=== PATIENT | female | born 2000 | race Two or more races ===

== ENCOUNTER 2024-11-24 11:16 | Outpatient (CLI) | payer OTHER | END 2024-11-24 11:23 | disposition home or self-care (01) | LOC: PRENATAL 11:16 | PROVIDERS: ATTEND Obstetrics & Gynecology Maternal & Fetal Medicine | DX: O36.80X0 Pregnancy with inconclusive fetal viability, not applicable or unspecified (principal); O26.859 Spotting complicating pregnancy, unspecified trimester; O30.90 Multiple gestation, unspecified, unspecified trimester; O36.1999 Maternal care for other isoimmunization, unspecified trimester, other fetus; Z3A.01 Less than 8 weeks gestation of pregnancy ==